=== PATIENT | female | born 1930 | race Caucasian/White ===

== ENCOUNTER 2018-05-28 09:50 | Emergency (ER) | payer MEDICARE, BC ==
[2018-05-28] MEDS ORDERED: Adacel (T-DAP) 0.5 ML SYRINGE ONE (10:02)
== END 2018-05-28 10:31 | disposition home or self-care (01) ==
LOC: SCSER 09:50
DX: S80.811A Abrasion, right lower leg, initial encounter (principal); L03.115 Cellulitis of right lower limb; E03.9 Hypothyroidism, unspecified; F03.90 Unspecified dementia, unspecified severity, without behavioral disturbance, psychotic disturbance, mood disturbance, and anxiety; I10 Essential (primary) hypertension; E78.5 Hyperlipidemia, unspecified; E11.9 Type 2 diabetes mellitus without complications; W22.8XXA Striking against or struck by other objects, initial encounter
CPT/HCPCS: 90471; 90715

== ENCOUNTER 2019-05-15 11:08 | Outpatient (CLI) | payer MEDICARE, BC ==
--- NOTE | 2019-05-15 13:08 | RAD ---
PA AND LATERAL VIEWS CHEST: Date: 05/15/2019 HISTORY: Chest pain. FINDINGS: There are no previous exams for comparison. The heart size is normal. The aorta is tortuous. The lungs are well expanded without lobar consolidat ion, pneumothoraces, or pleural effusions. There are degenerative changes in the spine. IMPRESSION: No radiographic evidence of acute cardiopulmonary process. POS: OFF
== END 2019-05-15 11:09 | disposition home or self-care (01) ==
LOC: BICRAD 11:08
PROVIDERS: ATTEND Specialist
DX: R07.89 Other chest pain (principal)
CPT/HCPCS: 71046